=== PATIENT | male | born 1995 | race Caucasian/White ===

== ENCOUNTER 2016-09-05 11:41 | Emergency (ER) | payer SELFPAY ==
--- NOTE | ~2016-09-05 | CR181 ---
[facility] A Service of [facility] RADIOLOGY TEXT RESULTS PATIENT: SILVERIO EVANS ANNY LOCATION: SED : [birth year] UNIT #: [id number] AGE: [address]: Irais River SEX: M ORDER DR: [id number] [address] [id number] E MR#: [id number] #: [id number] NAME: SILVERIO EVANSN : 1995 SEX: M STUDY DATE/TIME: 09/05/2016 11:14 UNIT: SED ROOM: STUDY DESCRIPTION: CR Lumbar Spine 2 or 3 Views Attending Physician: Irais River Pa-C Referring Physician: Irais River Pa-C Ordering Physician: Irais River Pa-C Primary Care Physician: Shanell Bui M.D. MEDICAL IMAGING REPORT This report is preliminary unless electronic signature is present. EXAM Lumbar spine dated 09/05/2016 COMPARISON Lumbar spine series dated 09/15/2014. HISTORY Low back pain which hurts worse in the center of the spine at L4 level since yesterday. FINDINGS 3 views of the lumbar spine were obtained. Vertebral body heights and alignment are preserved. There is mild superior endplate compression deformity of T11 with about 10% maximal vertebral body height loss. It is stable when compared to 2 years ago and is chronic. No superimposed acute abnormality is seen. Intervertebral disc heights are intact. Pre- and paravertebral soft tissues are within normal limits. Dictated by... Connor Napoles M.D. THIS IS AN ELECTRONICALLY VERIFIED REPORT Connor Napoles M.D. at 09/05/2016 3:49 PM CPR/aa TD: 09/05/2016 13:35 JOB #: [id number] [facility] A Service of [facility] RADIOLOGY TEXT RESULTS PATIENT: SILVERIO EVANS ANNY LOCATION: SED : [birth year] UNIT #: [id number] AGE: [address]: Irais River SEX: M ORDER DR: MEDICAL IMAGING REPORT Page 1 of 1
[~2016-09-05 11:41] MED LIST: IBUPROFEN PO; IBUPROFEN800 MG PO; NO MEDICATIONS; PHENERGAN25 M1 PO; PHENERGAN25 MG; PRILOSEC; TYLENOL #3 PO; ZITHROMAX PO
== END 2016-09-05 11:56 | disposition home or self-care (01) ==
LOC: SED 11:41
DX: S39.012A Strain of muscle, fascia and tendon of lower back, initial encounter (principal); X50.0XXA Overexertion from strenuous movement or load, initial encounter; J45.909 Unspecified asthma, uncomplicated; Z88.8 Allergy status to other drugs, medicaments and biological substances; Z88.5 Allergy status to narcotic agent
CPT/HCPCS: 72100; 96372; 99283; J1040; J1885